=== PATIENT | female | born 2000 | race Caucasian/White ===

== ENCOUNTER 2020-08-26 21:57 | Emergency (ER) | payer OTHER, MEDICAID, SELFPAY ==
[2020-08-26 22:04] VITALS: BP 129/83; PULSE 97; RESP 16; TEMP 37.2; O2SAT 95; BMI 45.3
--- NOTE | 2020-08-26 22:16 | XRR_ITS ---
PROCEDURE INFORMATION: Exam: XR Chest Exam date and time: 08/26/2020 10:23 PM Age: 20 years old Clinical indication: Pain; On breathing; Additional info: Pain in back, hurs with deep breath TECHNIQUE: Imaging protocol: XR of the chest. Views: 1 view. COMPARISON: No relevant prior studies available. FINDINGS: Lungs: Unremarkable. No consolidation. Pleural spaces: Unremarkable. No pleural effusion. No pneumothorax. Heart/Mediastinum: Unremarkable. No cardiomegaly. Bones/joints: Unremarkable. XR/XR chest 1V portable [id number] IMPRESSION: No acute findings.
--- NOTE | 2020-08-26 22:17 | ED_ITS ---
HPI - Back Pain/Injury General: Chief Complaint: Back Pain/Injury Stated Complaint: BACK PAIN Time Seen by Provider: 08/26/20 22:14 History of Present Illness: HPI Narrative: She states she has had intermittent pain in her mid back since about 5:00 today. Denies any illness. Denies any recent injury but she says she has felt a lot which she says she is clumsy and she thinks she might of fell and hurt her back. Denies any chest pain denies any shortness of breath fever chills or other related problems denies cough MD elicited complaint: back pain Pertinent past history: prior back pain Onset (ago): hour(s) Timing: intermittent Severity: mild Similar Symptoms Previously: Yes Quality: aching Location: thoracic spine Radiation: none Exacerbating factors: walking Relieving factors: immobilization and sitting upright Context: unknown Associated symptoms: Reports no associated symptoms; Deny abdominal pain, chills, fever(s), nausea or vomiting Review of Systems Const: Denies: fever(s), chills or body aches Eyes: Denies: change in vision or blurry vision ENMT: Denies: throat pain or nasal congestion Card: Denies: chest pain or dyspnea on exertion Resp: Denies: dyspnea, productive cough or non-productive cough GI: Denies: abdominal pain, nausea or vomiting Musc: Reports: back pain (Hurts in thoracic spine and hurts with deep breath); Denies: extremity pain Skin/Breast: Denies: rash Neuro: Denies: headache(s) Psych: Denies: anxiety or depression Carl/Lymph: Denies: easy bruising Physical Exam Const: COMMON NORMALS: no acute distress, average body habitus and patient oriented x3 HENMT: COMMON NORMALS: normocephalic HEAD & SCALP: normal to inspection and normocephalic FACE & SINUS: normal facial exam Eye: COMMON NORMALS: conjunctivae normal GENERAL EYE: appearance normal, both eyes and all related structures CONJUNCTIVA: Yes conjunctivae normal Neck/C-Spine: COMMON NORMALS: no JVD Chest: COMMONS NORMALS: normal inspection of the chest Resp: COMMON NORMALS: normal respiratory effort and clear to auscultation bilaterally AUSCULTATION: clear to auscultation bilaterally Cardio: COMMON NORMALS: no JVD, regular rate and regular rhythm RATE: regu lar rate RHYTHM: regular rhythm GI: COMMON NORMALS: Normal to inspection, nondistended, normoactive bowel sounds present Back/Pelvis: THORACIC SPINE/UPPER BACK: Yes thoracic ROM normal and Yes thoracic spinal tenderness (Right behind bra strap) Extremity: COMMON NORMALS: normal to inspection and full ROM Neuro: COMMON NORMALS: patient oriented x3 Course Vital Signs: Vital signs: Vital Signs Temperature 98.9 F 08/26/20 22:04 Pulse Rate 97 08/26/20 22:04 Respiratory Rate 16 08/26/20 22:04 Blood Pressure 129/83 08/26/20 22:04 Pulse Oximetry 95 08/26/20 22:04 Discharge Plan Discharge Prescriptions: No Action cetirizine [Zyrtec] 10 mg tablet 10 mg PO .qhs Qty: 30 RF: 2 Coding Level of Care Code ED Resident Care Coordinator for Dominic Islas
[2020-08-26] MEDS: naproxen 500 mg Tablet PO (22:24)
== END 2020-08-26 22:44 | disposition home or self-care (01) ==
PROVIDERS: Emergency Provider Nurse Practitioner Family; PCP Nurse Practitioner
DX: M54.9 Dorsalgia, unspecified (principal)
CPT/HCPCS: 71045; 99283

== ENCOUNTER 2021-05-26 00:35 | Emergency (ER) | payer MEDICAID, SELFPAY ==
[2021-05-26 00:44] VITALS: BP 173/89; PULSE 100; RESP 18; TEMP 36.9; O2SAT 96; BMI 29.5
--- NOTE | 2021-05-26 00:49 | ED_ITS ---
HPI - COVID General: Chief Complaint: COVID symptoms Stated Complaint: Covid Symptoms Time Seen by Provider: 05/26/21 00:48 Triage information: No known COVID + exposure last 14 days History of Present Illness: 20-year-old female comes in today with illness for 3 days. Patient reports that illness 2 days ago with sore throat and fever. Patient reports tonight she has lost her taste and smell. Patient is concerned for COVID-19. Patient has a history of seasonal allergies. COVID 19 common symptoms: positive throat pain and nasal congestion COVID Results: SARS-CoV-2 (PCR) Pending 05/26/21 00:56 05/26/21 Coronavirus Type 229E (PCR) Pending 05/26/21 00:56 05/26/21 Review of Systems ENMT: Reports: throat pain and nasal congestion Physical Exam Const: COMMON NORMALS: alert HENMT: COMMON NORMALS: normocephalic HEAD & SCALP: normocephalic THROAT: posterior oropharynx abnormal erythema Eye: COMMON NORMALS: Equal, round and reactive pupils present and EOMs intact bilaterally PUPIL: Yes Equal, round and reactive pupils present Neck/C-Spine: COMMON NORMALS: full ROM Resp: COMMON NORMALS: normal respiratory effort and clear to auscultation bilaterally AUSCULTATION: clear to auscultation bilaterally Cardio: COMMON NORMALS: regular rate and regular rhythm RATE: regular rate RHYTHM: regular rhythm Extremity: COMMON NORMALS: normal to inspection and full ROM Neuro: SENSORIUM/ORIENTATION: Yes alert Psych: COMMON NORMALS: mental status grossly normal Skin: COMMON NORMALS: no rashes or lesions noted GENERAL SKIN EXAM: no rashes or lesions noted Course Vital Signs: Vital signs: Vital Signs Temperature 98.5 F 05/26/21 00:44 Pulse Rate 100 05/26/21 00:44 Respiratory Rate 18 05/26/21 00:44 Blood Pressure 173/89 05/26/21 00:44 Pulse Oximetry 96 05/26/21 00:44 MDM - COVID Medical Decision Making 20-year-old female comes in today with complaints of sore throat and fever for 1 to 2 days. Today patient lost her taste and her sense of smell. Patient was concerned for COVID-19. On exam patient's alert and oriented. Patient's posterior pharynx is slightly erythematous. Vital signs are normal except for some mild elevation of blood pressure. Differential diagnosis includes upper respiratory infection, COVID-19, strep pharyngitis, other viral illness. Strep test was negative. COVID-19 test was outstanding. Reviewed exam with patient with recommendations for supportive care and follow-up. Patient reported understanding and agreed to plan. Lab Data Laboratory Results Group A Strep Rapid Negative (Negative) 05/26/21 00:56 SARS-CoV-2 (PCR) Pending 05/26/21 00:56 05/26/21 Coronavirus Type 229E (PCR) Pending 05/26/21 00:56 05/26/21 Discharge Plan Discharge Patient Disposition: Home Clinical Impression: Upper respiratory infection, Suspected severe acute respiratory syndrome coronavirus 2 (SARS-CoV-2) infection Condition: Stable Prescriptions: No Action cetirizine [Zyrtec] 10 mg tablet 10 mg PO .qhs Qty: 30 2RF naproxen 250 mg tablet 250 mg PO Q12H PRN (Reason: pain) Qty: 10 0RF Discharge Orders: Discharge ED (Routine); Ordered 05/26/21 Ordered By: Wu Mcmahon Referrals: Nate Muñoz FNP-C [Primary Care Provider] - Discharge Diet: Usual diet Discharge Activity: Increase activity as tolerated Patient Instructions: Upper Respiratory Infection (ED), Opioid Safety Activity Restrictions/Additional Instructions: Home and rest. Drink plenty of fluids. Use acetaminophen or ibuprofen for pain and fever. Your Covid test will come back within the next 24 hours. You can call back and talk with the ER charge nurse for final results, or follow-up with your primary care who could obtain the results for you. At this time I would recommend you avoid contact with other individuals while ill. Wear a mask when around other people. And use good handwashing techniques. The illness should last 5 to 10 days. If you continue to have symptoms after 10 days or have worsening symptoms follow-up with primary care or return to the ER. Coding Level of Care Code ED Management Scientist for Chg Fwd History Problem Focused Exam Problem Focused Medical Decision Making Low Complexity Time Spent (min) 20
[2021-05-26 01:41] LABS: Rapid Strep A Test Negative (Negative)
[2021-05-26 03:15] LABS: Adenovirus Not Detected (NOT DETECT); Chlamydia Pneumoniae Not Detected (NOT DETECT); Coronavirus 229E,HKU1,NL63,OC4 Not Detected (NOT DETECT); Human Metapneumovirus Not Detected (NOT DETECT); Human Rhinovirus/Enterovirus Not Detected (NOT DETECT); Influenza A Not Detected (NOT DETECT); Influenza A H1 Not Detected (NOT DETECT); Influenza A H1-2009 Not Detected (NOT DETECT); Influenza A H3 Not Detected (NOT DETECT); Influenza B Not Detected (NOT DETECT); Mycoplasma Pneumoniae Not Detected (NOT DETECT); Parainfluenza Virus Type 1 Not Detected (NOT DETECT); Parainfluenza Virus Type 2 Not Detected (NOT DETECT); Parainfluenza Virus Type 3 Not Detected (NOT DETECT); Parainfluenza Virus Type 4 Not Detected (NOT DETECT); Respiratory Syncytial Virus A Not Detected (NOT DETECT); Respiratory Syncytial Virus B Not Detected (NOT DETECT); SARS-COV-2 Detected (NOT DETECT)
== END 2021-05-26 01:52 | disposition home or self-care (01) ==
PROVIDERS: Emergency Provider Nurse Practitioner Family; PCP Nurse Practitioner
DX: U07.1 COVID-19 (principal)
CPT/HCPCS: 87081; 87635; 87880; 99282

== ENCOUNTER → 2021-12-11 11:25 | Outpatient (BNVA) | payer MEDICAID, SELFPAY | PROVIDERS: PCP Nurse Practitioner; Visit Provider Nurse Practitioner Family | DX: J30.2 Other seasonal allergic rhinitis (principal); G25.2 Other specified forms of tremor; E66.9 Obesity, unspecified; Z00.00 Encounter for general adult medical examination without abnormal findings | CPT/HCPCS: 80053; 80061; 82607; 84443 ==

== ENCOUNTER → 2023-03-24 16:53 | Outpatient (BNVA) | payer MEDICARE, MEDICAID, SELFPAY | PROVIDERS: PCP Nurse Practitioner; Visit Provider Nurse Practitioner Family | DX: E66.9 Obesity, unspecified (principal); M79.10 Myalgia, unspecified site; M25.50 Pain in unspecified joint; R60.0 Localized edema; F41.8 Other specified anxiety disorders; G25.2 Other specified forms of tremor; J30.2 Other seasonal allergic rhinitis | CPT/HCPCS: 80053; 83880; 84443; 85651; 86140; 86160; 86162; 86200; 86235; 86255; 86376; 86431; 86705; 86706; 86709; 86803; 87340 ==

== ENCOUNTER → 2023-09-19 13:47 | Outpatient (BNVA) | payer MEDICAID, SELFPAY | PROVIDERS: PCP Nurse Practitioner; Visit Provider Nurse Practitioner Family | DX: F41.8 Other specified anxiety disorders (principal); E78.2 Mixed hyperlipidemia; G25.2 Other specified forms of tremor | CPT/HCPCS: 80053; 80061; 85025 ==

== ENCOUNTER → 2024-10-06 16:02 | Outpatient (BNVA) | payer MEDICARE, MEDICAID, SELFPAY | PROVIDERS: PCP Nurse Practitioner; Visit Provider Nurse Practitioner | DX: E78.2 Mixed hyperlipidemia (principal); F41.8 Other specified anxiety disorders | CPT/HCPCS: 80053; 80061; 84443 ==

== ENCOUNTER → 2024-11-26 14:02 | Outpatient (BNVA) | payer MEDICARE, SELFPAY | PROVIDERS: PCP Nurse Practitioner; Visit Provider Clinical Nurse Specialist Adult Health | DX: R39.9 Unspecified symptoms and signs involving the genitourinary system (principal) | CPT/HCPCS: 81000 ==